=== PATIENT | male | born 1975 | race African-American/Black ===

== ENCOUNTER 2025-04-19 11:37 | Day surgery (SDC) | payer OTHER, SELFPAY ==
--- NOTE | 2025-04-19 12:05 | PM.HP.IH.1 ---
History of Present Illness History of Present Illness Date Patient Seen: 04/19/25 Chief complaint: SDC Narrative: For screening colonoscopy Meds Home Medications and Allergies Home Medications ?Medication ?Instructions ?Recorded ?Confirmed ?Type apixaban 5 mg tablet (Eliquis) 5 mg PO BID 04/19/25 04/19/25 History carvedilol 12.5 mg tablet 12.5 mg PO BID 04/19/25 04/19/25 History Allergies Allergy/AdvReac Type Severity Reaction Status Date / Time No Known Drug Allergies Allergy Verified 04/19/25 12:02 Exam Narrative Exam Narrative: Oropharynx free of lesions Chest clear to auscultation percussion Cardiac exam reveals no S3 or murmur Assessment & Plan Assessment & Plan narrative: For screening colonoscopy. No symptoms or family history. Risks, benefits, alternatives have been explained. Time-Based Coding :: [TOTAL MINUTES] spent with patient and on the chart (including review of chart, obtaining history, exam, reviewing outside data, placing orders, documenting exam and treatment plan, and counseling patient) on [DATE]. [employer] Document charge(s): No
--- NOTE | 2025-04-19 12:07 | PM.OP.COLON ---
Operative Date/Time/Diagnoses Date of procedure: 04/19/25 Time of procedure: 13:01 Pre-op diagnosis: See indication and findings Post-op diagnosis: same Procedure & Clinicians Study performed: Colonoscopy Same procedure(s) as scheduled: Yes Indications: For screening colonoscopy Surgeon: Joann Bain Anesthesia Type: Other Procedure Notes Procedure in detail: After informed consent was obtained placed in left lateral decubitus position. Video colonoscope was advanced to the cecum. Preparation was good. On slow withdrawal mucosa was carefully examined. The scope was removed. The patient tolerated procedure well. Blood loss none Complications none Sedation mac Findings 1. Normal colonoscopy to cecum Patient should have follow-up colonoscopy in 10 years. He can restart his Eliquis today or tomorrow morning
[2025-04-19 12:10] VITALS: BP 115/77; PULSE 71; RESP 16; TEMP 36.2; O2SAT 96
[2025-04-19] MEDS: LACTATED RINGERS 1,000 ML 42 ML IV (12:10)
[2025-04-19 13:04] VITALS: BP 95/58; PULSE 74; RESP 16; TEMP 36.6; O2SAT 93
[2025-04-19 13:08] VITALS: BP 95/53; PULSE 64; RESP 16; O2SAT 94
[2025-04-19 13:13] VITALS: BP 100/55; PULSE 73; RESP 15; TEMP 36.6; O2SAT 93
[2025-04-19 13:20] VITALS: BP 104/67; PULSE 74; RESP 16; O2SAT 92
[2025-04-19 13:30] VITALS: BP 125/75; PULSE 73; RESP 16; O2SAT 95
== END 2025-04-19 13:33 | disposition home or self-care (01) ==
PROVIDERS: Referring Provider Internal Medicine Gastroenterology; Visit Provider Internal Medicine Gastroenterology
PROC: 0DJD8ZZ Inspection of Lower Intestinal Tract, Via Natural or Artificial Opening Endoscopic (ICD-10-PCS; CPT 45378; principal; 2025-04-19 13:00)
DX: Z12.11 Encounter for screening for malignant neoplasm of colon (principal)
CPT/HCPCS: 45378; J2704; J7120